=== PATIENT | male | born 2000 | race Two or more races ===

== ENCOUNTER 2019-08-22 22:35 | Emergency (ER) | payer MEDICAID, OTHER ==
[~2019-08-22] VITALS: Ht 167.6 cm; Wt 56.7 kg
[2019-08-23 00:52] VITALS: BP 144/69
== END 2019-08-23 01:16 | disposition home or self-care (01) ==
LOC: ER 22:38
DX: M79.631 Pain in right forearm (principal)
CPT/HCPCS: 73090